=== PATIENT | male | born 1980 | race Caucasian/White ===

== ENCOUNTER 2017-10-18 16:47 | Emergency (ER) | payer MEDICAID ==
[2017-10-18 17:01] VITALS: BP 146/89
[2017-10-18] MEDS ORDERED: DIPHTH,PERTUSS(ACELL),TET VAC 0.5 ML VIAL IM ONE ×2 (17:11→17:35)
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
== END 2017-10-18 18:06 | disposition home or self-care (01) ==
LOC: ER 16:47
PROC: 2W3KX1Z Immobilization of Left Finger using Splint (ICD-10-PCS; principal; 2017-10-18)
PROC: 0KQD0ZZ Repair Left Hand Muscle, Open Approach (ICD-10-PCS; 2017-10-18)
DX: S61.211A Laceration without foreign body of left index finger without damage to nail, initial encounter (principal); W23.0XXA Caught, crushed, jammed, or pinched between moving objects, initial encounter; Y93.89 Activity, other specified; Y92.9 Unspecified place or not applicable; Y99.9 Unspecified external cause status

== ENCOUNTER 2017-10-24 18:58 | Emergency (ER) | payer MEDICAID | END 2017-10-24 19:16 | disposition home or self-care (01) | LOC: ER 18:58 | DX: Z48.00 Encounter for change or removal of nonsurgical wound dressing (principal) ==

== ENCOUNTER 2017-10-26 20:54 | Emergency (ER) | payer MEDICAID ==
[2017-10-26 21:05] VITALS: BP 131/87
== END 2017-10-26 21:10 | disposition home or self-care (01) ==
LOC: ER 20:54
DX: Z48.00 Encounter for change or removal of nonsurgical wound dressing (principal)